=== PATIENT | male | born 1980 | race Caucasian/White ===

== ENCOUNTER → 2017-05-27 | Outpatient (CLI) | payer BC ==
[2017-05-31 14:39] LABS: ALPHA-1-ANTITRYPSIN SERUM 88 mg/dL (90-200)
== END ==
LOC: OD 12:37
PROVIDERS: ATTEND Internal Medicine Critical Care Medicine
DX: J45.40 Moderate persistent asthma, uncomplicated (principal); J44.9 Chronic obstructive pulmonary disease, unspecified; R06.00 Dyspnea, unspecified
CPT/HCPCS: 36415; 82103; 82104

== ENCOUNTER → 2018-07-25 | Outpatient (CLI) | payer BC ==
[2018-07-29 12:44] LABS: ALPHA-1-ANTITRYPSIN PHENOTYPE FS (.)
== END ==
LOC: OD 10:03
PROVIDERS: ATTEND Internal Medicine Critical Care Medicine
DX: E88.01 Alpha-1-antitrypsin deficiency (principal); J45.40 Moderate persistent asthma, uncomplicated; J44.9 Chronic obstructive pulmonary disease, unspecified; R06.00 Dyspnea, unspecified
CPT/HCPCS: 36415; 82103; 82104